=== PATIENT | female | born 1965 | race Asian ===

== ENCOUNTER 2018-12-02 01:36 | Emergency (ER) | payer SELFPAY ==
[~2018-12-02] VITALS: Ht 162.6 cm; Wt 69.9 kg
[2018-12-02 01:43] VITALS: Ht 162.6 cm; Wt 69.9 kg
[2018-12-02 03:59] VITALS: BP 149/80
== END 2018-12-02 03:59 | disposition home or self-care (01) ==
LOC: ED 01:36
DX: L03.031 Cellulitis of right toe (principal); Z98.890 Other specified postprocedural states